=== PATIENT | female | born 1995 | race Caucasian/White ===

== ENCOUNTER 2017-06-16 01:35 | Inpatient (IN) | payer OTHER ==
[~2017-06-16] VITALS: Ht 162.6 cm; Wt 112.8 kg
[2017-06-16] VITALS (9 sets, daily range): BP systolic 116–149; BP diastolic 68–84; PULSE 81–98; TEMP 36.5–36.9; O2SAT 94–98; Ht 162.6 cm; Wt 112.8 kg
[2017-06-16] MEDS ORDERED: KETOROLAC TROMETHAMINE 30 MG/ML VIAL IV STA (01:52)
[2017-06-16] MEDS ORDERED: ONDANSETRON INJ 2 MG/ML 2 ML VIAL IV STA (01:52)
[2017-06-16] MEDS ORDERED: SODIUM CHLORIDE 0.9% 1000ML 1,000 ML IV STA (01:52)
[2017-06-16] MEDS ORDERED: RIBO100T9 PO (02:07)
[2017-06-16] MEDS ORDERED: MAGN1TAB41 PO (02:07)
[2017-06-16] MEDS ORDERED: GABA-112 PO (02:07)
[2017-06-16 02:09] LABS: BASO % 0.4 %; BASO ABS # 0.05 K/uL (0-0.2); EOS % 0.8 %; HEMOGLOBIN 14.3 g/dL (12.0-16.0); IG# 0.07 K/uL (0.00-0.02); LYMPH % 25.8 %; LYMPH ABS # 3.17 K/uL (1.2-3.4); MEAN CELL VOLUME 85.9 fL (80-100); MEAN CORPUSCULAR HEMOGLOBIN 29.2 pg (25-34); MEAN PLATELET VOLUME 10.4 fL (7.4-10.4); MONO % 8.2 %; MONO ABS # 1.01 K/uL (0.11-0.59); NEUT % 64.2 %; NEUT ABS # 7.88 K/uL (1.4-6.5); PLATELET COUNT 234 K/uL (130-400); RED CELL DISTRIBUTION WIDTH CV 13.1 % (11.5-14.5); RED CELL DISTRIBUTION WIDTH SD 41.5 fL (36.4-46.3); WHITE BLOOD COUNT 12.28 K/uL (4.8-10.8)
[2017-06-16 02:27] LABS: CALCIUM 9.1 mg/dl (8.5-10.1); CREATININE 0.75 mg/dl (0.60-1.20); POTASSIUM 3.9 mmol/L (3.5-5.1)
[2017-06-16 02:30] LABS: TOTAL PROTEIN 7.8 gm/dl (6.4-8.2)
[2017-06-16] MEDS ORDERED: OPTIRAY 320 IV PRN (03:45)
[2017-06-16] MEDS ORDERED: CEFOXITIN 2000MG/60 ML D5W IV STA (04:49)
[2017-06-16] MEDS ORDERED: CEFOXITIN IV 2,000 MG in DEXTROSE 5% 50ML 50 ML IV STA (04:52)
[2017-06-16] MEDS ORDERED: MoRPHine SULFATE 2 MG/ML CARP IV PRN (05:15)
[2017-06-16] MEDS ORDERED: ONDANSETRON INJ 2 MG/ML 2 ML VIAL IV PRN ×2 (05:15→13:00)
[2017-06-16] MEDS ORDERED: CEFOXITIN IV 2,000 MG in DEXTROSE 5% 50ML 50 ML IV SCH (06:00)
--- NOTE | 2017-06-16 06:37 | DIAGNOSTIC IMAGING REPORT ---
GALLBLADDER-ABD LIMITED HISTORY: 21 years-old Female ruq pain, ? GB acute right upper quadrant abdominal pain COMPARISON: CT abdomen and pelvis of same day TECHNIQUE: Multiple real-time sonographic images of the right upper quadrant were obtained assessing grayscale appearance and color flow FINDINGS: The pancreas appears unremarkable. Increased echogenicity of the liver with poor through transmission is noted suggesting fatty infiltration. No focal hepatic mass lesions or intrahepatic biliary ductal dilation. Mild layering gallbladder sludge without shadowing cholelithiasis, gallbladder wall thickening or pericholecystic fluid. Sonographic Islas sign reported as negative. Common bile duct measures 2.5 mm and within normal limits. Imaged right kidney is unremarkable without hydronephrosis. IMPRESSION: 1. Mild layering gallbladder sludge without cholelithiasis or sonographic evidence of acute cholecystitis. 2. Hepatic steatosis. 3. No biliary ductal dilation. The above report was generated using voice recognition software. It may contain grammatical, syntax or spelling errors. Electronically signed by: Dami Kwan M.D. 06/16/2017 6:35 AM Dictated Date/Time: 06/16/2017 6:33 AM
[2017-06-16] MEDS: LACTATED RINGER'S 1000ML 1,000 ML IV SCH ×3 (06:47→21:49)
--- NOTE | 2017-06-16 06:54 | DIAGNOSTIC IMAGING REPORT ---
CT OF THE ABDOMEN AND PELVIS WITH CONTRAST CLINICAL HISTORY: Right lower quadrant abdominal pain. COMPARISON STUDY: Right upper quadrant ultrasound June 16, 2017. TECHNIQUE: Following IV administration of 116 mL of Optiray-320, axial images of the abdomen and pelvis were obtained from the lung bases to the proximal femurs. Images were reviewed in the axial, sagittal, and coronal planes. IV contrast was administered without complication. A dose lowering technique was utilized adhering to the principles of ALARA. CT DOSE: 1349.41 mGy.cm FINDINGS: Fatty infiltration of the liver is noted. The spleen, adrenal glands, kidneys and pancreas are normal. There is no biliary or pancreatic ductal dilatation. There is no hydronephrosis. Caliber and wall thickness of small and large bowel are normal. The caliber of the proximal to mid appendix is normal. However, there is an appendicolith within the mid appendix. The distal appendix is mildly dilated, measuring 9 mm in caliber. There is trace periappendiceal fluid/infiltration. There is no free air or abscess. Visualized skeletal structures are unremarkable. The ovaries are not enlarged. There is no lymphadenopathy. IMPRESSION: Findings suggestive of early acute appendicitis. No free air or abscess. Small appendicolith with mild appendiceal dilatation and trace periappendiceal fluid/stranding. Electronically signed by: Waqar Mayfield M.D. 06/16/2017 6:53 AM Dictated Date/Time: 06/16/2017 6:48 AM
[2017-06-16] MEDS ORDERED: CEFOXITIN SOD 1 GM VIAL IV STA (10:48)
[2017-06-16] MEDS ORDERED: CEFOXITIN IV 1,000 MG in DEXTROSE 5% 50ML 50 ML IV STA (10:56)
--- NOTE | 2017-06-16 10:56 | Surgery Consultation ---
Consultation Date of Consultation: Jun 16, 2017. Attending Physician: Alberto Barrios MD History of Present Illness pt is a21 year old female who presents to Er with 1 day history RLQ pain , with nausea, no vomiting, pt denies diarrhea, no fever, Social History Smoking Status: Never Smoker Smokeless Tobacco Use: No Alcohol Use: none Drug Use: none Allergies Coded Allergies: Eggs or Egg-derived Products (Verified Allergy, Severe, "SEVERE GI UPSET- HIVES", 06/16/17) Loratadine (Verified Allergy, Severe, "SEVERE DROZINESS-CAN'T STAY AWAKE". , 06/16/17) Topiramate (Verified Allergy, Intermediate, "ITCHINESS-FEVER", 06/16/17) Home Medications Scheduled Gabapentin (Neurontin), 200 MG PO BID Magnesium Oxide (Magnesium), 400 MG PO QPM Riboflavin (Vitamin B-2), 400 MG PO QPM Current Inpatient Medications Current Inpatient Medications Medications (Trade) Dose Ordered Sig/Ysabel Route Start Time Stop Time Status Last Admin Dose Admin Ioversol (Optiray 320) 100 ml UD PRN IV 06/16/17 03:45 06/20/17 03:44 Lactated Ringer's 1,000 ml @ 125 mls/hr Q8H IV 06/16/17 06:30 07/16/17 06:29 06/16/17 06:47 125 MLS/HR Morphine Sulfate (MoRPHine SULFATE INJ) 2 mg Q1H PRN IV 06/16/17 05:15 06/30/17 05:14 06/16/17 06:09 2 MG Ondansetron HCl (Zofran Inj) 4 mg Q6H PRN IV 06/16/17 05:15 07/16/17 05:14 Morphine Sulfate (MoRPHine SULFATE INJ) 4 mg Q1H PRN IV 06/16/17 06:00 06/30/17 05:59 Review of Systems Constitutional: No fever, No chills, No sweats, No weight loss, No weakness, No fatigue, No problem reported Eyes: No worsening of vision, No eye pain, No redness, No discharge, No diplopia, No problem reported ENT: No hearing loss, No unusual epistaxis, No nasal symptoms, No sore throat, No tinnitus, No dental problems, No trouble swallowing, No problem reported Respiratory: No cough, No sputum, No wheezing, No shortness of breath, No dyspnea on exertion, No dyspnea at rest, No hemoptysis, No problem reported Cardiovascular: No chest pain, No orthopnea, No PND, No edema, No claudication , No palpitations, No problem reported Abdomen: + pain, + nausea Musculoskeletal: No joint pain, No muscle pain, No swelling, No calf pain, No problem reported Genitourinary - Female: No dysuria, No urinary frequency, No urinary urgency, No urinary incontinence, No urinary retention, No hematuria, No dysmenorrhea, No menorrhagia, No metrorrhagia, No rash, No vaginal bleeding, No vaginal discharge, No vaginal itching, No vulvodynia, No , No problem reported Neurologic: No memory loss, No paralysis, No weakness, No numbness/tingling, No vertigo, No balance problems, No problem reported Psychiatric: No depression symptoms, No anhedonism, No anxiety, No insomnia, No substance abuse, No problem reported Endocrine: No fatigue, No excessive thirst, No excessive urination, No problem reported Hematologic / Lymphatic: No abnormal bleeding/bruising, No clotting problems, No swollen lymph nodes, No night sweats, No problem reported Physical Exam Date Time Temp Pulse Resp B/P (MAP) Pulse Ox O2 Delivery O2 Flow Rate FiO2 06/16/17 07:15 Room Air 06/16/17 06:59 36.6 85 18 126/74 (91) 98 Room Air 06/16/17 06:23 36.7 85 16 149/84 98 Room Air 06/16/17 06:03 79 18 110/70 99 06/16/17 04:51 80 18 110/58 99 Room Air 06/16/17 03:16 71 18 126/75 98 Room Air 06/16/17 02:09 Room Air 06/16/17 01:38 36.7 84 18 161/107 99 Room Air General Appearance: WD/WN, no apparent distress Head: normocephalic Eyes: normal inspection ENT: normal ENT inspection Neck: supple, no JVD Respiratory/Chest: chest non-tender, lungs clear, normal breath sounds Cardiovascular: regular rate, rhythm, no edema, no gallop, no JVD, no murmur Abdomen/GI: normal bowel sounds, soft, no organomegaly, no pulsatile mass, + tenderness (at RLQ, no rebound pain, ) Extremities/Musculoskelatal: normal inspection, no calf tenderness, normal capillary refill Neurologic/Psych: no motor/sensory deficits, alert, normal mood/affect Skin: normal color, warm/dry, no rash Lymphatic: no adenopathy Laboratory Results Last 24 Hours Test 06/16/17 01:57 06/16/17 04:40 White Blood Count 12.28 K/uL Red Blood Count 4.89 M/uL Hemoglobin 14.3 g/dL Hematocrit 42.0 % Mean Corpuscular Volume 85.9 fL Mean Corpuscular Hemoglobin 29.2 pg Mean Corpuscular Hemoglobin Concent 34.0 g/dl Platelet Count 234 K/uL Mean Platelet Volume 10.4 fL Neutrophils (%) (Auto) 64.2 % Lymphocytes (%) (Auto) 25.8 % Monocytes (%) (Auto) 8.2 % Eosinophils (%) (Auto) 0.8 % Basophils (%) (Auto) 0.4 % Neutrophils # (Auto) 7.88 K/uL Lymphocytes # (Auto) 3.17 K/uL Monocytes # (Auto) 1.01 K/uL Eosinophils # (Auto) 0.10 K/uL Basophils # (Auto) 0.05 K/uL RDW Standard Deviation 41.5 fL RDW Coefficient of Variation 13.1 % Immature Granulocyte % (Auto) 0.6 % Immature Granulocyte # (Auto) 0.07 K/uL Sodium Level 137 mmol/L Potassium Level 3.9 mmol/L Chloride Level 104 mmol/L Carbon Dioxide Level 24 mmol/L Anion Gap 9.0 mmol/L Blood Urea Nitrogen 15 mg/dl Creatinine 0.75 mg/dl Est Creatinine Clear Calc Drug Dose 144.8 ml/min Estimated GFR () 131.1 Estimated GFR (Non- 113.1 BUN/Creatinine Ratio 20.0 Random Glucose 104 mg/dl Calcium Level 9.1 mg/dl Total Bilirubin 0.3 mg/dl Direct Bilirubin 0.1 mg/dl Aspartate Amino Transf (AST/SGOT) 14 U/L Alanine Aminotransferase (ALT/SGPT) 40 U/L Alkaline Phosphatase 70 U/L Total Protein 7.8 gm/dl Albumin 4.0 gm/dl Lipase 132 U/L Human Chorionic Gonadotropin, Qual NEG Urine Color DK YELLOW Urine Appearance CLEAR Urine pH 6.5 Urine Specific [place] > 1.045 Urine Protein NEG Urine Glucose (UA) NEG Urine Ketones NEG Urine Occult Blood NEG Urine Nitrite NEG Urine Bilirubin NEG Urine Urobilinogen NEG Urine Leukocyte Esterase NEG Assessment & Plan CT scan-FINDINGS: Fatty infiltration of the liver is noted. The spleen, adrenal glands, kidneys and pancreas are normal. There is no biliary or pancreatic ductal dilatation. There is no hydronephrosis. Caliber and wall thickness of small and large bowel are normal. The caliber of the proximal to mid appendix is normal. However, there is an appendicolith within the mid appendix. The distal appendix is mildly dilated, measuring 9 mm in caliber. There is trace periappendiceal fluid/infiltration. There is no free air or abscess. Visualized skeletal structures are unremarkable. The ovaries are not enlarged. There is no lymphadenopathy. IMPRESSION: Findings suggestive of early acute appendicitis. No free air or abscess. Small appendicolith with mild appendiceal dilatation and trace periappendiceal fluid/stranding. Assessment: pt is a 21 yo female who presents to ER with one day history RLQ pain, IMP: acute appendicitis Plan: I recommend to do laparoscopic appendectomy, possible open, D/W benefits, risks and alternatives of the procedure, the risks - infection, bleeding, abscess, injury bowel, pt understood,she agrees with the surgery, I answered call questions,
[2017-06-16] MEDS ORDERED: LIDOCAINE HCL 1% 20 ML VIAL ONE (11:02)
[2017-06-16] MEDS ORDERED: BUPIVACAINE 0.5 % 5 MG/1 ML MPF 30ML VIAL ONE (11:02)
[2017-06-16] MEDS ORDERED: PROPOFOL IV EMULSION 10 MG/ML 20 ML VIAL IV ONE (11:13)
[2017-06-16] MEDS ORDERED: FENTANYL CITRATE INJ 50 MCG/1 ML 2 ML VIAL ONE ×2 (11:13→12:13)
[2017-06-16] MEDS ORDERED: LIDOCAINE 2% 20 MG/ML 5ML SYR IV ONE (11:13)
[2017-06-16] MEDS ORDERED: ROCURONIUM BROMIDE 10 MG/ML 5 ML VIAL IV ONE (11:13)
[2017-06-16] MEDS ORDERED: MIDAZOLAM HCL 1 MG/ML 2ML VIAL ONE (11:13)
[2017-06-16] MEDS ORDERED: ACETAMINOPHEN 1000 MG/100 ML IV IV ONE (11:17)
--- NOTE | 2017-06-16 11:39 | History & Physical Bridge Note ---
H&P Re-Evaluation Bridge Note: I have examined the patient, reviewed the History & Physical and in the interval since the performance of the History & Physical I have noted the following changes of clinical significance: No changes noted
[2017-06-16] MEDS ORDERED: GLYCOPYRROLATE INJ 0.2 MG/ML VIAL ONE (12:18)
[2017-06-16] MEDS ORDERED: NEOSTIGMINE METHYLSULFATE 5 MG/5 ML SYR ONE (12:18)
[2017-06-16] MEDS ORDERED: SUCCINYLCHOLINE CHLORIDE 20 MG/ML 10 ML VIAL IV ONE (12:18)
[2017-06-16] MEDS ORDERED: DEXAMETHASONE SOD INJ 4 MG/ML VIAL ONE (12:18)
[2017-06-16] MEDS ORDERED: ONDANSETRON INJ 2 MG/ML 2 ML VIAL ONE (12:18)
[2017-06-16] MEDS ORDERED: NALOXONE HCL 0.4 MG/1 ML VIAL/CARP IV PRN (13:00)
[2017-06-16] MEDS ORDERED: ATROPINE SULFATE 0.1 MG/ML 5ML SYR IV PRN (13:00)
[2017-06-16] MEDS ORDERED: PROMETHAZINE HCL INJ 12.5 MG in SODIUM CHLORIDE 0.9% 50ML 50 ML IV PRN (13:00)
[2017-06-16] MEDS ORDERED: EpHEDrine SULFATE INJ 50 MG/ML AMP IV PRN (13:00)
[2017-06-16] MEDS ORDERED: FLUMAZENIL 0.1 MG/1 ML 10 ML VIAL IV PRN (13:00)
--- NOTE | 2017-06-16 13:20 | [facility] Post Operative Brief Note ---
Immediate Operative Summary Operative Date Jun 16, 2017. Pre-Operative Diagnosis Acute Appenditis Post-Operative Diagnosis Same Procedure(s) Performed Laparoscopic Appendectomy Surgeon Dr García Pigment Presser Surgeon(s) none Estimated Blood Loss 10 cc Findings Consistent with Post-Op Diagnosis Specimens a. appendix Drains None Anesthesia Type General Complication(s) none Disposition Disposition: Recovery Room / PACU
[2017-06-16] MEDS: FENTANYL CITRATE INJ 50 MCG/1 ML 2 ML VIAL IV PRN ×4 (13:50→14:05)
--- NOTE | 2017-06-16 14:03 | Anesthesiology Progress Note ---
Anesthesia Post Op Note Date & Time Jun 16, 2017 at 14:02 Vital Signs Pain Intensity: 6.0 Vital Signs Past 12 Hours Date Time Temp Pulse Resp B/P (MAP) Pulse Ox O2 Delivery O2 Flow Rate FiO2 06/16/17 13:55 87 14 138/76 92 Room Air 06/16/17 13:45 76 23 153/86 93 Room Air 06/16/17 13:35 79 19 142/80 92 Oxymask 10 06/16/17 13:25 85 19 139/92 93 Oxymask 10 06/16/17 13:19 36.9 85 12 150/86 93 Oxymask 10 06/16/17 07:15 Room Air 06/16/17 06:59 36.6 85 18 126/74 (91) 98 Room Air 06/16/17 06:23 36.7 85 16 149/84 98 Room Air 06/16/17 06:03 79 18 110/70 99 06/16/17 04:51 80 18 110/58 99 Room Air 06/16/17 03:16 71 18 126/75 98 Room Air 06/16/17 02:09 Room Air Notes Mental Status: alert / awake / arousable, participated in evaluation Pt Amnestic to Procedure: Yes Nausea / Vomiting: adequately controlled Pain: adequately controlled Airway Patency, RR, SpO2: stable & adequate BP & HR: stable & adequate Hydration State: stable & adequate Anesthetic Complications: no major complications apparent
--- NOTE | 2017-06-16 14:52 | OPERATIVE REPORT ---
DATE OF OPERATION: 06/16/2017 PREOPERATIVE DIAGNOSIS: Acute appendicitis. POSTOPERATIVE DIAGNOSIS: Same. PROCEDURE: Laparoscopic appendectomy. SURGEON: Dr. García. FINDINGS: The distal one-third of the appendix was hyperemic, edematous and firm. The proximal two-thirds of the appendix including the appendix at the base was normal. The cecum at the base of the appendix was normal. There was no evidence of perforation or abscess. There was a small amount of clear fluid in the pelvis. The visible bowel appeared normal. The uterus appeared slightly enlarged and that the right ovary had a small cyst, but was otherwise normal. TECHNIQUE: The patient was given a general anesthetic and the area was prepped and draped in the usual sterile fashion. Transverse incision was made below the umbilicus, carried down through the subcutaneous tissue to the fascia, which was grasped with 2 Cody clamps and incised between. The peritoneum was identified, incised, and the introducer was placed bluntly. The abdomen was then insufflated to a pressure of 15 mmHg with carbon dioxide. A lower midline introducer was then placed under direct vision. Traction was placed medially on the cecum and the appendix was seen lying lateral to the cecum. The left lower quadrant introducer was placed under direct vision. The tip of the appendix was free, but some of the mesoappendix was adherent to the lateral and posterolateral abdominal wall. These adhesions were divided bluntly. That allowed me to elevate the appendix and divide some of the medial attachments. I could not divide the mesoappendix after a plane had been established between the base of the appendix and the mesoappendix, so I amputated the appendix first using the Endo-CAL stapler being sure that I was at the level of the base of the appendix. That allowed me then to elevate the base and I was then able to obtain an angle on the mesoappendix and I was then able to divide that using 2 firings of the Endo-CAL stapler freeing the appendix completely. The appendix was placed into an Endobag and brought out through the left lower quadrant introducer site with ease. That introducer was replaced and the right lower quadrant was irrigated. The irrigation was removed. The staple lines were inspected and there was no bleeding. Any irrigation that entered the right upper quadrant was removed and the fluid in the pelvis was also removed. Further irrigation of the right lower quadrant was performed and then that was removed. The gas was allowed to escape and the introducers were removed. The fascia of the umbilical and left lower quadrant introducer sites was closed with interrupted 0 Vicryl and skin of all the incisions was closed with 4-0 Monocryl in either an interrupted or running subcuticular fashion. Skin was anesthetized with 0.5% Marcaine. It was then cleansed, dried, benzoin placed, and Steri-Strips applied. Estimated blood loss was 10 mL. Sponge, needle and instrument counts were correct prior to closure. The patient tolerated the surgical procedure without complication and was transferred to recovery. I attest to the content of the Intraoperative Record and any orders documented therein. Any exception s are noted below.
[2017-06-16] MEDS: MoRPHine SULFATE 4 MG/ML 1 ML CARP\\VIAL IV PRN ×3 (15:31→23:49)
[2017-06-16] MEDS: GABAPENTIN 100 MG CAP PO SCH ×2 (20:51→20:58)
[2017-06-16] MEDS ORDERED: NURSING VERBAL MED ORDER ONE (21:00)
[2017-06-16] MEDS ORDERED: COUGH DROP (SUGAR FREE) LOZ 24 LOZ/1 BOX LOZ PRN (21:30)
[2017-06-17 03:56] VITALS: BP 108/64; PULSE 84; TEMP 36.9; O2SAT 96
--- NOTE | 2017-06-17 05:19 | EMERGENCY ROOM VISIT NOTE ---
History First contact with patient: 01:44 Chief Complaint: ABDOMINAL PAIN Stated Complaint: MILD TO SEVERE RIGHT SIDE PAIN Nursing Triage Summary: Pt started with RUQ abdominal pain around 0000 with nausea. Pt states it started a couple days ago but was not as bad. History of Present Illness The patient is a 21 year old female who presents to the Emergency Room with complaints of nausea and right mid upper quadrant abdominal pain the past several hours described as discomfort, 8 out of 10. Nothing makes it better or worse. It does not radiate. Patient had beef and broccoli earlier tonight. No history of similar symptoms in the past. She still has her gallbladder and appendix. Patient denies chest pain, dyspnea, fever, chills, back pain, urinary symptoms, female complaints. Review of Systems An 10 system review of systems was completed with positives and pertinent negatives listed in the HPI. Past Medical/Surgical History Medical Problems: (1) Appendicitis Migraines Social History Smoking Status: Never Smoker Smokeless Tobacco Use: No Drug Use: none Occupation Status: employed Current/Historical Medications Scheduled Gabapentin (Neurontin), 200 MG PO BID Magnesium Oxide (Magnesium), 400 MG PO QPM Riboflavin (Vitamin B-2), 400 MG PO QPM Physical Exam Vital Signs Date Time Temp Pulse Resp B/P (MAP) Pulse Ox O2 Delivery O2 Flow Rate FiO2 06/16/17 04:51 80 18 110/58 99 Room Air 06/16/17 03:16 71 18 126/75 98 Room Air 06/16/17 02:09 Room Air 06/16/17 01:38 36.7 84 18 161/107 99 Room Air Physical Exam VITALS: Vitals are noted on the nurse's note and reviewed by myself. Vital signs stable. GENERAL: Pleasant female, in no acute distress, nondiaphoretic, well-developed well-nourished. SKIN: The skin was without rashes, erythema, edema, or bruising. There is no tenting of the skin. Capillary reflex less than 2 seconds. HEAD: Normocephalic atraumatic. EARS: External auditory canals clear, tympanic membranes pearly mujica without erythema or effusion bilaterally. EYES: Pupils equal round and reactive to light and accommodation. Conjunctivae without injection, sclerae without icterus. Extraocular movements intact. NOSE: Patent, turbinates without inflammation or discharge. MOUTH: Mucous membranes moist. Pharynx without erythema or exudate. Uvula midline. Airway patent. Tongue does not deviate. NECK: Supple without nuchal rigidity. No lymphadenopathy. No thyromegaly. Cervical spine is nontender. No JVD. HEART: Regular rate and rhythm without murmurs gallops or rubs. LUNGS: Clear to auscultation bilaterally without wheezes, rales or rhonchi. No dullness to percussion. No retractions or accessory muscle use. ABDOMEN: Positive bowel sounds x 4. Normal tympanic percussion. Soft, protuberant, obese, tender to palpation mid and right upper quadrants, no CVA tenderness, without masses or organomegaly. No guarding or rebound tenderness. MUSCULOSKELETAL: No muscle atrophy, erythema, or edema noted. NEURO: Patient was alert and oriented to person place and time. Normal sensation to light and sharp touch. No focal neurological deficits. Medical Decision & Procedures Laboratory Results 06/16/17 01:57 Red Blood Count 4.89, Mean Corpuscular Volume 85.9, Mean Corpuscular Hemoglobin 29.2, Mean Corpuscular Hemoglobin Concent 34.0, Mean Platelet Volume 10.4, Neutrophils (%) (Auto) 64.2, Lymphocytes (%) (Auto) 25.8, Monocytes (%) (Auto) 8.2, Eosinophils (%) (Auto) 0.8, Basophils (%) (Auto) 0.4, Neutrophils # (Auto) 7.88, Lymphocytes # (Auto) 3.17, Monocytes # (Auto) 1.01, Eosinophils # (Auto) 0.10, Basophils # (Auto) 0.05 06/16/17 01:57 Test 06/16/17 01:57 06/16/17 04:40 White Blood Count 12.28 K/uL (4.8-10.8) Red Blood Count 4.89 M/uL (4.2-5.4) Hemoglobin 14.3 g/dL (12.0-16.0) Hematocrit 42.0 % (37-47) Mean Corpuscular Volume 85.9 fL (80-100) Mean Corpuscular Hemoglobin 29.2 pg (25-34) Mean Corpuscular Hemoglobin Concent 34.0 g/dl (32-36) Platelet Count 234 K/uL (130-400) Mean Platelet Volume 10.4 fL (7.4-10.4) Neutrophils (%) (Auto) 64.2 % Lymphocytes (%) (Auto) 25.8 % Monocytes (%) (Auto) 8.2 % Eosinophils (%) (Auto) 0.8 % Basophils (%) (Auto) 0.4 % Neutrophils # (Auto) 7.88 K/uL (1.4-6.5) Lymphocytes # (Auto) 3.17 K/uL (1.2-3.4) Monocytes # (Auto) 1.01 K/uL (0.11-0.59) Eosinophils # (Auto) 0.10 K/uL (0-0.5) Basophils # (Auto) 0.05 K/uL (0-0.2) RDW Standard Deviation 41.5 fL (36.4-46.3) RDW Coefficient of Variation 13.1 % (11.5-14.5) Immature Granulocyte % (Auto) 0.6 % Immature Granulocyte # (Auto) 0.07 K/uL (0.00-0.02) Anion Gap 9.0 mmol/L (3-11) Est Creatinine Clear Calc Drug Dose 144.8 ml/min Estimated GFR () 131.1 Estimated GFR (Non- 113.1 BUN/Creatinine Ratio 20.0 (10-20) Calcium Level 9.1 mg/dl (8.5-10.1) Total Bilirubin 0.3 mg/dl (0.2-1) Direct Bilirubin 0.1 mg/dl (0-0.2) Aspartate Amino Transf (AST/SGOT) 14 U/L (15-37) Alanine Aminotransferase (ALT/SGPT) 40 U/L (12-78) Alkaline Phosphatase 70 U/L (45-117) Total Protein 7.8 gm/dl (6.4-8.2) Albumin 4.0 gm/dl (3.4-5.0) Lipase 132 U/L (73-393) Human Chorionic Gonadotropin, Qual NEG (NEG) Urine Color DK YELLOW Urine Appearance CLEAR (CLEAR) Urine pH 6.5 (4.5-7.5) Urine Specific [place] > 1.045 (1.000-1.030) Urine Protein NEG (NEG) Urine Glucose (UA) NEG (NEG) Urine Ketones NEG (NEG) Urine Occult Blood NEG (NEG) Urine Nitrite NEG (NEG) Urine Bilirubin NEG (NEG) Urine Urobilinogen NEG (NEG) Urine Leukocyte Esterase NEG (NEG) Medications Administered Medications (Trade) Dose Ordered Sig/Ysabel Route Start Time Stop Time Status Last Admin Dose Admin Sodium Chloride 1,000 ml @ 999 mls/hr Q1H1M STAT IV 06/16/17 01:52 06/16/17 02:52 DC 06/16/17 02:05 999 MLS/HR Ketorolac Tromethamine (Toradol Inj) 30 mg NOW STAT IV 06/16/17 01:52 06/16/17 01:54 DC 06/16/17 02:06 30 MG Ondansetron HCl (Zofran Inj) 4 mg NOW STAT IV 06/16/17 01:52 06/16/17 01:54 DC 06/16/17 02:06 4 MG Cefoxitin Sodium 2000 mg/Dextrose 60 ml @ 120 mls/hr NOW STAT IV 06/16/17 04:52 06/16/17 05:21 DC 06/16/17 05:04 120 MLS/HR Morphine Sulfate (MoRPHine SULFATE INJ) 2 mg Q1H PRN IV 06/16/17 05:15 06/30/17 05:14 06/16/17 06:09 2 MG ED Course Prior records/ancillary studies reviewed. Triage Nursing notes reviewed. The patient's history was concerning for abdominal pain. Differential diagnosis: Etiologies such as appendicitis, diverticulitis, , PUD, biliary pathology, UTI, pancreatitis, obstruction, mesenteric ischemia, aortic pathology , infections, inflammatory bowel disease, renal colic, as well as others were entertained. Physical examination findings: As above. ER treatment provided: Morphine, Zofran, IV fluids On reassessment the patient felt better. Diagnostics interpreted by me: The labs revealed leukocytosis, no worrisome nodular antibody negative hCG Imaging studies: CT ABDOMEN & PELVIS With Contrast: Proximal appendix appears normal. However, there is an appendicolith at the level of the mid appendix and the distal appendix is mildly enlarged/fluid-filled. Minimal surrounding stranding. Likely represents acute appendicitis involving the mid to distal appendix. No free air or abscess. Small amount of free fluid in the pelvis. Fatty liver. Mild basilar atelectasis Radiologist: Enzo Alexandre M.D. Ultrasound of the gallbladder negative for acute cholecystitis Consultation: A consultation was placed with the surgeon, Dr. Fernandez. The case was discussed and diagnostics were reviewed. The patient was evaluated in the ER for further treatment. Exam and history seem consistent with early acute appendicitis. Surgery was consulted. He will evaluate the patient. Patient was placed n.p.o. and started on antibiotics. Patient was neurovascularly and neurologically intact. Patient did have a mild leukocytosis. She was not . By the evaluation outlined above emergent etiologies such as diverticulitis, PUD, biliary pathology, UTI, pancreatitis, obstruction, mesenteric ischemia, aortic pathology, inflammatory bowel disease, renal colic, as well as others were deemed relatively unlikely. The pt informed about the findings as listed above. All questions were answered and pleased with the treatment. Case reviewed with my attending The chart was completed utilizing [employer] voice recognition software. Grammatical errors, random word insertions, pronoun errors, and incomplete sentences are an occassional consequence of this system due to software limitations, ambient noise, and hardware issues. Any formal questions or concerns about the content, text, or information contained within the body of this dictation should be directly addressed to the physician virtual assistant for advertisers for clarification. Medical Decision As above Medication Reconcilliation Current Medication List: was personally reviewed by me Blood Pressure Screening Patient's blood pressure: Normal blood pressure Impression Primary Impression: Appendicitis Departure Information Referrals Mehnaz Guevara M.D. (PCP) Patient Instructions My [facility] Problem Qualifiers Primary Impression: Appendicitis Appendicitis type: acute appendicitis Acute appendicitis type: with localized peritonitis Qualified Codes: K35.3 - Acute appendicitis with localized peritonitis
[2017-06-17] MEDS: LACTATED RINGER'S 1000ML 1,000 ML IV SCH (05:33)
[2017-06-17 08:05] VITALS: BP 106/69; PULSE 85; TEMP 36.8; O2SAT 95
[2017-06-17] MEDS ORDERED: ACETAMINOPHEN 325 MG TAB PO PRN (08:15)
[2017-06-17] MEDS ORDERED: OXYCODONE/ACETAMINOPHEN 5-325 TAB PO PRN ×2 (08:15)
[2017-06-17] MEDS ORDERED: OXYCODONE/ACETAMINOPHEN 5-325 TAB ONE (08:15)
[2017-06-17] MEDS: GABAPENTIN 100 MG CAP PO SCH ×2 (08:17→08:19)
[2017-06-17 11:57] VITALS: BP 114/70; PULSE 82; TEMP 36.7; O2SAT 98
--- NOTE | 2017-06-17 12:49 | Surgery Progress Note ---
Surgery Progress Note Date of Service Jun 17, 2017. Subjective Post OP Day: 1 + feeling well, + flatus, + diet (tolerated regular diet), No bowel movement, No nausea, No vomiting Objective Vital Signs: Date Time Temp Pulse Resp B/P (MAP) Pulse Ox O2 Delivery O2 Flow Rate FiO2 06/17/17 11:57 36.7 82 16 114/70 (85) 98 Room Air 06/17/17 08:05 36.8 85 16 106/69 (81) 95 Room Air 06/17/17 07:10 Room Air 06/17/17 03:56 36.9 84 18 108/64 (79) 96 Room Air 06/16/17 23:50 Room Air 06/16/17 23:10 36.9 89 16 116/68 (84) 94 Room Air 06/16/17 19:29 36.5 95 19 134/75 (94) 94 Room Air 06/16/17 17:40 36.5 98 19 142/74 (96) 97 Nasal Cannula 2.0 06/16/17 17:00 Nasal Cannula 06/16/17 16:40 36.5 81 18 121/73 (89) 94 Nasal Cannula 2.0 06/16/17 15:40 36.8 81 16 118/77 (91) 94 Nasal Cannula 2.0 06/16/17 15:03 36.6 81 17 121/77 (92) 94 Nasal Cannula 2.0 06/16/17 14:40 94 Nasal Cannula 2.0 06/16/17 14:40 36.7 81 18 136/79 (98) 94 Nasal Cannula 2.0 06/16/17 14:25 36.4 71 19 135/74 95 Nasal Cannula 2 06/16/17 14:15 83 17 137/86 92 Room Air 06/16/17 14:05 88 19 137/86 91 Room Air 06/16/17 13:55 87 14 138/76 92 Room Air 06/16/17 13:45 76 23 153/86 93 Room Air 06/16/17 13:35 79 19 142/80 92 Oxymask 10 06/16/17 13:25 85 19 139/92 93 Oxymask 10 06/16/17 13:19 36.9 85 12 150/86 93 Oxymask 10 Abdomen: non distended, soft Incision(s): clean, dry, intact, no erythema Assessment & Plan S/P laparoscopic appendectomy Doing well Can D/C to home Discussed activity instructions
--- NOTE | 2017-06-17 12:51 | Discharge Instructions ---
Discharge Instructions Date of Service Jun 17, 2017. Admission Reason for Admission: Appendicitis Discharge Discharge Diagnosis / Problem: Same Discharge Goals Goal(s): Decrease discomfort Activity Recommendations Activity Limitations: per Instructions/Follow-up section Lifting Limitations: no more than 10 pounds (for 2 weeks) . Instructions / Follow-Up Instructions / Follow-Up Post-Surgical ~ Discharge Instructions Activity Recommendations: - lifting limitation: (10 pounds for 2 weeks), - exercise/sex/sports limit: (nonstrenuous for 2 weeks), - driving or machine use limit: (none for 1 week), - Shower/bathe limit: (may shower beginning this evening) Diet: - Resume previous diet SPECIAL CARE INSTRUCTIONS: - May shower in 24 hours. Let water run over area and pat dry. - Leave steri strips on for one week. - Call the surgeon's office with any questions or concerns - - (ex. temperature higher than 101 degrees F, excessive bleeding or pain). MEDICATIONS: - Resume previous medications unless instructed otherwise by your surgeon. - Percocet 1 every 4 hours, as needed for pain FOLLOW UP VISIT: - If not already scheduled, please call the office to schedule a two week follow-up appointment. Office number Current Hospital Diet Patient's current hospital diet: Regular Diet Discharge Diet Recommended Diet: Regular Diet Procedures Procedures Performed: Laparoscopic Appendectomy Pending Studies Studies pending at discharge: yes List of pending studies: Pathology Medical Emergencies . Who to Call and When: Medical Emergencies: If at any time you feel your situation is an emergency, please call 911 immediately. . Non-Emergent Contact Non-Emergency issues call your: Primary Care Provider, Surgeon Call Non-Emergent contact if: your pain is worsening, wound has increased redness, wound has increased pain . "Provider Documentation" section prepared by Joe García. . VTE Core Measure Inpt VTE Proph given/why not?: Treatment not indicated
[2017-06-17 13:41] VITALS: BP 114/70; PULSE 82; TEMP 36.7; O2SAT 98
--- NOTE | 2017-06-18 14:44 | Discharge Summary ---
Discharge Summary Dates Admission Date / Time: Jun 16, 2017 at 05:18 Discharge Date: Jun 17, 2017 Dispostion / Condition Discharge Disposition: Home Condition at Discharge: Good Principal Diagnosis (1) Appendicitis Problem List (1) Migraine Consultations / Procedures Consultations: None Procedures: Laparoscopic appendectomy Vaccinations: None Pending Studies / Follow-Up Appendix pathology will be reviewed at follow-up visit Medication Reconciliation Continued Medications: Gabapentin (Neurontin) 100 Mg Cap 200 MG PO BID, CAP PT STATES "DUE TO INCREASE DOSE 06/16/17 TO 300 MG BID". Magnesium Oxide (Magnesium) 400 Mg Tab 400 MG PO QPM Riboflavin (Vitamin B-2) 100 Mg Tab 400 MG PO QPM Admission HPI Per the Admitting provider: pt is a21 year old female who presents to Er with 1 day history RLQ pain , with nausea, no vomiting, pt denies diarrhea, no fever, Hospital Course (1) Appendicitis Patient was taken to operating room for laparoscopic appendectomy possible open by Dr. García. Patient was found to have acute appendicitis without perforation or abscess. Patient tolerated procedure well without any complications. Was transferred to recovery room and then to medical/surgical floor in stable condition. Post-op orders included IV fluids, IV morphine as needed for pain, regular diet, activity as tolerated, IV Zofran as needed for nausea. ON POD #1 patient was evaluated. Vitals signs stable, afebrile, tolerating regular diet, ambulating, urinating without difficulty, and pain controlled with IV pain medication. Oral Percocet and oral Tylenol were ordered as needed for pain. Patient had one Percocet in the morning upon evaluation in which was controlling her pain. Patient was discharged home on POD #1 in stable condition. Overall hospital course was uneventful. Discharge Instructions as given to patient Copies To Primary Care Provider: Mehnaz Guevara M.D.. Problem Qualifiers (1) Appendicitis: Appendicitis type: acute appendicitis Acute appendicitis type: with localized peritonitis Qualified Codes: K35.3 - Acute appendicitis with localized peritonitis
== END 2017-06-17 14:35 | disposition home or self-care (01) | DRG 339 ==
LOC: C.EDB 01:37 → C.MSW 05:18 → ENRESERV 05:48
PROVIDERS: ADMIT Surgery; ATTEND Surgery
PROC: 0DTJ4ZZ Resection of Appendix, Percutaneous Endoscopic Approach (ICD-10-PCS; principal; 2017-06-16 07:30)
DX: K35.3 Acute appendicitis with localized peritonitis (principal); Z68.41 Body mass index [BMI] 40.0-44.9, adult; E66.01 Morbid (severe) obesity due to excess calories; Z87.09 Personal history of other diseases of the respiratory system; Z79.899 Other long term (current) drug therapy; Z88.8 Allergy status to other drugs, medicaments and biological substances; Z91.012 Allergy to eggs